=== PATIENT | male | born 1990 | race Caucasian/White ===

== ENCOUNTER 2016-06-15 13:36 | Emergency (ER) | payer MEDICARE, MEDICAID ==
[2016-06-15 14:14] VITALS: BP 129/60; PULSE 99; TEMP 98.7
[2016-06-15 14:15] VITALS: BMI 29.2
[2016-06-15] MEDS ORDERED: LIDOCAINE 1% 5 ML (METHYLPARABEN FREE) INF ONE (14:24)
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
== END 2016-06-15 14:49 | disposition home or self-care (01) ==
LOC: EDMC 13:36
DX: K13.0 Diseases of lips (principal); F17.200 Nicotine dependence, unspecified, uncomplicated
CPT/HCPCS: 10060; 99282; A9270; J3490